=== PATIENT | female | born 1945 | race Caucasian/White ===

== ENCOUNTER → 2019-10-31 | Outpatient (CLI) | payer MEDICARE, BC ==
[~2019-10-31] MED LIST: ASP81TEC PO; ATOR80TA PO; AZIT-21 PO; CAND8TAB PO; CLPD75T PO; DILT240C87 PO; ENAL2.5T PO; EZET10TA5 PO; FERR-57 PO; LVT.05T PO; METO-333 PO; OMG1KC PO; PNT40TEC PO; PRD20T PO; SIMV20TA3 PO; SULF1TAB34 PO; TICA90TA PO; VALS320T8 PO
--- NOTE | 2019-10-31 09:49 | Diagnostic Imaging Report ---
CLINICAL INDICATION: Patient with right upper quadrant pain and epigastric pain. EXAM: Right upper quadrant ultrasound. COMPARISON: CT scan of the abdomen and pelvis without contrast dated 06/30/2012. FINDINGS: LIVER: The visualized portions of the liver is normal in shape and echogenicity without focal lesions. There is liver measures 12.9 cm. Diffuse hyperechogenicity seen throughout the liver. The main portal vein demonstrates hepatopedal flow. GALLBLADDER: Gallbladder wall thickness is upper limits of normal at 2.9 mm. Otherwise the gallbladder is normal in size, and shape without stones, sludge, or masses. There is no sonographic Garcia sign. BILE DUCTS: There is no evidence of intrahepatic biliary ductal dilatation. The common duct measured a maximum of 6.7 mm in diameter and is within normal limits for patient's age. PANCREAS: Portions of the pancreatic head and tail are obscured by overlying bowel gas. Otherwise, the remaining visualized portions of the pancreas has normal size, shape, and echogenicity without focal lesions. RIGHT KIDNEY: The visualized portions of the right kidney are unremarkable. The right kidney measures 10.2 cm in craniocaudal dimension. OTHER FINDINGS: Bowel gas obscures portions of the abdomen and the abdominal aorta and IVC are not well visualized. There is no intra-abdominal ascites. IMPRESSION: Bowel gas obscures some portions of this exam. Otherwise, unremarkable right upper quadrant ultrasound. Dictated by: Dictated on workstation # [id number]
== END ==
LOC: RAD 08:04
PROVIDERS: ATTEND Family Medicine
DX: R10.11 Right upper quadrant pain (principal); R10.13 Epigastric pain
CPT/HCPCS: 76705

== ENCOUNTER → 2020-05-22 | Outpatient (CLI) | payer BC, MEDICARE ==
--- NOTE | 2020-05-22 13:58 | Diagnostic Imaging Report ---
EXAMINATION: CT of the neck and chest without contrast. INDICATION: Left supraclavicular mass. TECHNIQUE: Contiguous axial sections were taken from the midportion of the skull through the neck, the thorax and the diaphragm. Sagittal and coronal reconstructed images were also obtained. However, the lung bases were not entirely visualized. COMPARISON: There are no prior CT examinations available for comparison. FINDINGS: Reported, there is clinical concern regarding a mass in the left supraclavicular region. On this exam, there is indeed a group of enlarged lymph nodes in the left supraclavicular area. These nodes have a conglomerate size of 2.7 x 5.9 cm. There is also another isolated large slightly enlarged lymph node in the left neck at the level of the mid cervical spine. This node measures 1.1 x 1.2 cm. In addition, the images through the thorax revealed there is adenopathy in the aorticopulmonary window and the anterior mediastinum on the left. The anterior mediastinal node measures approximately 1.7 x 1.8 cm while the largest aorticopulmonary window node is estimated to be 1.7 x 2.1 cm. There are also similar-sized but enlarged subcarinal and retrocrural nodes. There is no axillary adenopathy identified, however. The sections through the upper abdomen failed to show any adenopathy. The heart size is within normal limits. There are coronary artery calcifications evident. Aorta is not abnormally dilated. The lungs are generally clear. There is no obvious breast mass. The bone windows show no sign of a fracture or of a destructive lesion. The images through the neck show the parotid and submandibular glands are generally unremarkable. The thyroid gland is not well-visualized and may be atrophic or surgically absent. The intracranial contents show no sign of an acute abnormality. IMPRESSION: 1. There is adenopathy in the left supraclavicular region, the anterior mediastinum, the aorticopulmonary window, subcarinal region and the retrocrural area. There is also an isolated slightly enlarged lymph node in the mid neck on the left. This adenopathy should be considered secondary to neoplastic disease until proven otherwise. Lymphoma and leukemia would be the primary concern. If further imaging is desired, then PET/CT would be recommended. 2. There is no acute abnormality of the neck or chest. 3. The heart is not enlarged but there are coronary artery calcifications evident. Dictated by: Dictated on workstation # [id number]
== END ==
LOC: RAD 12:50
PROVIDERS: ATTEND Family Medicine
DX: R59.0 Localized enlarged lymph nodes (principal)
CPT/HCPCS: 70490; 71250